=== PATIENT | male | born 1955 | race Caucasian/White ===

== ENCOUNTER 2019-02-02 15:36 | Emergency (ER) | payer BC ==
[2019-02-02] MEDS ORDERED: Metoprolol Tartrate 2.5 MG in Sodium Chloride 0.9% 50 ML IV ONE (16:10)
[2019-02-02] MEDS ORDERED: Metoprolol Tartrate 5 MG/5 ML SDV IVPUSH ONE (16:13)
--- NOTE | 2019-02-02 16:14 | EDM.PDOC ---
ED HPI GENERAL MEDICAL PROBLEM - General Chief Complaint: Cardiovascular Problem Stated Complaint: CARDIAC ISSUES FOLLOWING SURGERY TODAY Time Seen by Provider: 02/02/19 16:00 Source of Information: Reports: Patient History Limitations: Reports: No Limitations - History of Present Illness INITIAL COMMENTS - FREE TEXT/NARRATIVE: 63-year-old male presents to the ED from the recovery room. Patient underwent a meniscectomy on his left knee today by Dr. 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 He states he is not aware of them they don't seem to make him dizzy or short of breath. Surgery did not have any arrhythmias. Apparently his heart rate dipped as low as 30/m at one point during the surgery. He's had his morning meds placed on hold but there is no cardiac meds and this other than simvastatin. Onset: Today Onset Date: 02/02/19 Onset Time: 15:00 Duration: Hour(s): Location: Reports: Other (Irregular heartbeat with trigeminy bigeminy PVCs intraoperatively and postoperatively in the recovery room.) Quality: Reports: Other (He otherwise feels asymptomatic with no dizziness no chest pain. He's not aware of the palpitations.) Severity: Mild Improves with: Reports: None Worsens with: Reports: None Context: Reports: Other (Patient had a left-sided medial meniscectomy today.). 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: EKG, Other (see below) (None.) - Related Data Allergies Allergy/AdvReac Type Severity Reaction Status Date / Time No Known Allergies Allergy Verified 02/02/19 15:45 Home Meds: Home Meds Loratadine [Claritin] 1 tab PO DAILY 06/27/14 [History] Multivitamin [Daily Vitamin] 1 tab PO DAILY 06/27/14 [History] Simvastatin 1 tab PO BEDTIME 06/27/14 [History] Acetaminophen/HYDROcodone [[place] 325-5 MG] 1 - 2 tab PO Q6H PRN #20 tablet 02/02 [Rx] Aspirin 325 mg PO BID #84 tab 02/02/19 [Rx] Past Medical History HEENT History: Reports: Allergic Rhinitis Cardiovascular History: Reports: None Respiratory History: Reports: None Gastrointestinal History: Reports: GERD Genitourinary History: Reports: None RN ORTHOPEDIC History: Reports: None Musculoskeletal History: Reports: None Neurological History: Reports: None Psychiatric History: Reports: None Endocrine/Metabolic History: Reports: None Hematologic History: Reports: None Immunologic History: Reports: None Oncologic (Cancer) History: Reports: None Dermatologic History: Reports: None - Past Surgical History HEENT Surgical History: Reports: None Cardiovascular Surgical History: Reports: None Respiratory Surgical History: Reports: None GI Surgical History: Reports: Colonoscopy Male Surgical History: Reports: None Endocrine Surgical History: Reports: None Neurological Surgical History: Reports: None Musculoskeletal Surgical History: Reports: Knee Replacement, Shoulder Surgery Other Musculoskeletal Surgeries/Procedures:: right knee replacement; left shoulder; left meniscus Oncologic Surgical History: Reports: None Dermatological Surgical History: Reports: None Social & Family History - Family History Family Medical History: Noncontributory - Tobacco Use Smoking Status *Q: Never Smoker - Caffeine Use Caffeine Use: Reports: Coffee - Recreational Drug Use Recreational Drug Use: No - Living Situation & Occupation Living situation: Reports: Occupation: Employed ED ROS GENERAL - Review of Systems Review Of Systems: See Below Constitutional: Reports: Weakness, Fatigue (From the anesthetic.). Denies: Fever, Chills, Malaise, Decreased Appetite HEENT: Reports: No Symptoms Respiratory: Reports: No Symptoms Cardiovascular: Reports: Other (Arrhythmia on the monitor with frequent PVCs. It 's occurred intraoperatively and continued in the recovery room postoperatively and therefore he was sent to the ED for further evaluation). Denies: No Symptoms, Chest Pain, Blood Pressure Problem, Claudication, Dyspnea on Exertion , Edema, Lightheadedness, Orthopnea, Palpitations Endocrine: Reports: No Symptoms GI/Abdominal: Reports: No Symptoms : Reports: Frequency, Other (Nocturia usually 1 or 2.) Musculoskeletal: Reports: Other Skin: Reports: No Symptoms (Left knee pain. Previous total right knee replacement) Neurological: Reports: No Symptoms Psychiatric: Reports: No Symptoms Hematologic/Lymphatic: Reports: No Symptoms Immunologic: Reports: No Symptoms ED EXAM, GENERAL - Physical Exam Exam: See Below Exam Limited By: No Limitations General Appearance: Alert, WD/WN, No Apparent Distress, Other (Vital signs are stable. BP is 137/83 pulse of 60 and sinus with frequent PVCs on the monitor. Arteries 15 pulse ox 99% on room air.) Eye Exam: Bilateral Eye: Normal Inspection Throat/Mouth: Normal Inspection, Normal Lips, Normal Oropharynx, Normal Voice Head: Atraumatic, Normocephalic Neck: Normal Inspection, Supple, Non-Tender, Full Range of Motion, Other. No: Carotid Bruit, Lymphadenopathy (L), Lymphadenopathy (R) Respiratory/Chest: No Respiratory Distress, Lungs Clear, Normal Breath Sounds, No Accessory Muscle Use Cardiovascular: Normal Peripheral Pulses, Regular Rate, Rhythm, No Edema, No Gallop, No Murmur, No Rub, Other (Frequent PVCs with bigeminy trigeminy pattern on the monitor.) Peripheral Pulses: 3+: Posterior Tibial (L), Posterior Tibial (R), Dorsalis Pedis (L), Dorsalis Pedis (R) GI/Abdominal: Normal Bowel Sounds, Soft, Non-Tender, No Organomegaly, No Abnormal Bruit, No Mass, Pelvis Stable Back Exam: Normal Inspection, Full Range of Motion. No: CVA Tenderness (L), CVA Tenderness (R) Extremities: Other (Well-healed midline scar over the right knee. Said previous total knee replacement. The left knee is bandaged with a compression bandage from thigh to foot with Dmitri wrap to the metatarsal heads. Pulses are easily palpable) Neurological: Alert ( in the foot.), Oriented, CN II-XII Intact, Normal Cognition Psychiatric: Normal Affect, Normal Mood Skin Exam: Warm, Dry, Intact, Normal Color, No Rash EKG INTERPRETATION EKG Date: 02/02/19 Time: 16:00 Rhythm: NSR Rate (Beats/Min): 58 (Occasional unifocal PVCs. They were coming in a bigeminy trigeminal fashion on the monitor.) [place]: LAD-Left [place] Deviation (Mild left axis deviation -4.) P-Wave: Present (Borderline first-degree AV block.) QRS: Other (Early R-wave transition V3 V4. Consider septal hypertrophy pattern.) ST-T: Normal (Irregular baseline lead 3) QT: Normal EKG Interpretation Comments: Borderline ECG. Course - Vital Signs Last Recorded V/S: Last Vital Signs Temp 36.2 C 02/02/19 15:47 Pulse 61 02/02/19 16:17 Resp 15 02/02/19 15:47 BP 140/85 02/02/19 16:17 Pulse Ox 99 02/02/19 15:47 - Orders/Labs/Meds Orders: Active Orders 24 hr Category Date Time Status EKG Documentation Completion [RC] ASDIRECTED Care 02/02/19 15:47 Active EKG Documentation Completion [RC] STAT Care 02/02/19 16:09 Inactive Sodium Chloride 0.9% [Normal Saline] 1,000 ml Med 02/02/19 16:30 Active IV ASDIRECTED EKG 12 Lead [EK] Stat Ther 02/02/19 15:46 Ordered Medication Orders Sodium Chloride (Normal Saline) 1,000 mls @ 150 mls/hr IV ASDIRECTED VARGAS Last Admin: 02/02/19 16:28 Dose: 150 mls/hr Meds: Medications Generic Name Dose Route Start Last Admin Trade Name Freq PRN Reason Stop Dose Admin Sodium Chloride 1,000 mls @ 150 mls/hr 02/02/19 16:30 02/02/19 16:28 Normal Saline IV 150 mls/hr ASDIRECTED VARGAS Administration Discontinued Medications Generic Name Dose Route Start Last Admin Trade Name Freq PRN Reason Stop Dose Admin Metoprolol Tartrate 2.5 mg/ 52.5 mls @ 100 mls/hr 02/02/19 16:10 02/02/19 16: 13 Sodium Chloride IV 02/02/19 16:42 Not Given ONETIME ONE Metoprolol Tartrate 2.5 mg 02/02/19 16:13 02/02/19 16:17 Lopressor IVPUSH 02/02/19 16:14 2.5 mg ONETIME ONE Administration - Radiology Interpretation Free Text/Narrative:: Plan 250 mils normal saline bolus. Will give him 2.5 mg of Lopressor IV. Routine labs to be performed. His will include a serum magnesium level and cardiac markers. - Re-Assessments/Exams Free Text/Narrative Re-Assessment/Exam: 02/02/19 17:32 patient remains completely asymptomatic. He still has occasional unifocal PVCs. Unfortunately labs were never collected for an unknown reason and therefore will be canceled. Patient is anxious to get out of the hospital. We discharged to home with follow-up as planned with Dr. Butt. He will return to the ED if any further problems occur. Departure - Departure Time of Disposition: 17:33 Disposition: Home, Self-Care 01 Reason for Transfer *Q: Other Condition: Good Clinical Impression: Arrhythmia Qualifiers: Arrhythmia type: other cardiac arrhythmia Qualified Code(s): I49.8 - Other specified cardiac arrhythmias Referrals: Clarence Coello MD [Primary Care Provider] - Forms: ED Department Discharge Additional Instructions: Evaluation the emergency room at the request of the recovery room after you came out of surgery he developed fairly frequent premature ventricular contractions sometimes every other beat. Sent to the ED for further evaluation in this regard. ECG shows no signs of ischemia or heart attack. They show the occasional unifocal PVC. Given this short dose of Lopressor 2.5 mg to suppress them and he did work for a while. However you're still getting the occasional unifocal PVC which is of no consequence. No changes to medications are to be made at this time. Follow-up any for any further problems occur - My Orders Last 24 Hours: My Active Orders 02/02/19 15:46 EKG 12 Lead [EK] Stat 02/02/19 15:47 EKG Documentation Completion [RC] ASDIRECTED 02/02/19 16:09 EKG Documentation Completion [RC] STAT 02/02/19 16:30 Sodium Chloride 0.9% [Normal Saline] 1,000 ml IV ASDIRECTED - Assessment/Plan Last 24 Hours: My Active Orders 02/02/19 15:46 EKG 12 Lead [EK] Stat 02/02/19 15:47 EKG Documentation Completion [RC] ASDIRECTED 02/02/19 16:09 EKG Documentation Completion [RC] STAT 02/02/19 16:30 Sodium Chloride 0.9% [Normal Saline] 1,000 ml IV ASDIRECTED
[2019-02-02 16:18] VITALS: BP 140/85
[2019-02-02] MEDS ORDERED: Sodium Chloride 0.9% 1,000 ML IV SCH (16:30)
== END 2019-02-02 17:55 | disposition home or self-care (01) ==
LOC: JD.ED 15:36
DX: I49.8 Other specified cardiac arrhythmias (principal); Z79.82 Long term (current) use of aspirin; Z79.899 Other long term (current) drug therapy
CPT/HCPCS: 93005; 96361; 96374; 99285; J3490; J7040

== ENCOUNTER → 2019-02-02 | Day surgery (SDC) | payer BC ==
[~2019-02-02] MED LIST: Bupivacaine 0.25% 10 ML SDV ONE; Dexamethasone 4 MG/ML 5 ML MDV ONE; EPINEPHrine 1 MG/ML 30 ML MDV SCH; Ketorolac 30 MG/ML SDV ONE; Lactated Ringers 1,000 ML IV SCH; Lactated Ringers 1,000 ML ONE; Lidocaine 1% 4 ML ONE; Lidocaine 1%/Sod Bicarbonate in NS 8.4% 1 ML Syringe IDERM PRN; Midazolam 1 MG/ML 2 ML SDV ONE; Ondansetron 4 MG/2 ML SDV ONE; Propofol 200 MG/20 ML SDV ONE; Sodium Chloride 0.9% 10 ML Syringe FLUSH PRN; ceFAZolin 1 GM Vial ONE; ePHEDrine/Normal Saline 25 MG/5 ML Syringe ONE; fentaNYL 100 MCG/2 ML SDV IVPUSH PRN; fentaNYL 250 MCG/5 ML SDV ONE
--- NOTE | 2019-02-02 10:18 | PCM.PREANE ---
Preanesthetic Assessment - Procedure Proposed Procedure: Left KVA with partial medial meniscectomy - Anesthesia/Transfusion/Family Hx Anesthesia History: Prior Anesthesia Without Reaction Family History of Anesthesia Reaction: No Transfusion History: No Prior Transfusion(s) - Review of Systems General: No Symptoms Pulmonary: No Symptoms Cardiovascular: No Symptoms Gastrointestinal: No Symptoms Neurological: No Symptoms Other: Reports: None - Physical Assessment NPO Status Date: 02/01/19 NPO Status Time: 21:00 Vital Signs: Last Vital Signs Temp 36.6 C 02/02/19 09:25 Pulse 54 L 02/02/19 09:25 Resp 16 02/02/19 09:25 BP 134/78 02/02/19 09:25 Pulse Ox 96 02/02/19 09:25 Height: 1.75 m Weight: 78.018 kg ASA Class: 2 Mental Status: Alert & Oriented x3 Airway Class: Mallampati = 1 Dentition: Reports: Normal Dentition, Clancy(s) Thyro-Mental Finger Breadths: 3 Mouth Opening Finger Breadths: 3 ROM/Head Extension: Full Lungs: Clear to Auscultation, Normal Respiratory Effort Cardiovascular: Regular Rate, Regular Rhythm - Lab Values: Laboratory Last Values MRSA (PCR) Negative 01/27/19 10:48 - Imaging/EKG Impressions: EKG sinus rhythm rate 51 - Allergies Allergies/Adverse Reactions: Allergies Allergy/AdvReac Type Severity Reaction Status Date / Time No Known Allergies Allergy Verified 02/01/19 11:59 - Blood Blood Available: No Product(s) Available: None - Anesthesia Plan Pre-Op Medication Ordered: None - Acknowledgements Anesthesia Type Planned: General Anesthesia Pt an Appropriate Candidate for the Planned Anesthesia: Yes Alternatives and Risks of Anesthesia Discussed w Pt/Guardian: Yes Pt/Guardian Understands and Agrees with Anesthesia Plan: Yes PreAnesthesia Questionnaire HEENT History: Reports: Allergic Rhinitis Cardiovascular History: Reports: None Respiratory History: Reports: None Gastrointestinal History: Reports: GERD (history) Genitourinary History: Reports: None LOAD CHECKER History: Reports: None Musculoskeletal History: Reports: None Neurological History: Reports: None Psychiatric History: Reports: None Endocrine/Metabolic History: Reports: None Hematologic History: Reports: None Immunologic History: Reports: None Oncologic (Cancer) History: Reports: None Dermatologic History: Reports: None - Past Surgical History HEENT Surgical History: Reports: None Cardiovascular Surgical History: Reports: None Respiratory Surgical History: Reports: None GI Surgical History: Reports: Colonoscopy Female Surgical History: Reports: None Male Surgical History: Reports: None Endocrine Surgical History: Reports: None Neurological Surgical History: Reports: None Musculoskeletal Surgical History: Reports: Knee Replacement, Shoulder Surgery Oncologic Surgical History: Reports: None Dermatological Surgical History: Reports: None - SUBSTANCE USE Smoking Status *Q: Never Smoker Tobacco Use Within Last Twelve Months: No Second Hand Smoke Exposure: No Days Per Week of Alcohol Use: 1 Number of Drinks Per Day: 1 Total Drinks Per Week: 1 Recreational Drug Use History: No - HOME MEDS Home Medications: Home Meds Loratadine [Claritin] 1 tab PO DAILY 06/27/14 [History] Multivitamin [Daily Vitamin] 1 tab PO DAILY 06/27/14 [History] Simvastatin 1 tab PO BEDTIME 06/27/14 [History] Acetaminophen/HYDROcodone [[place] 325-5 MG] 1 - 2 tab PO Q6H PRN #20 tablet 02/02 [Rx] Aspirin 325 mg PO BID #84 tab 02/02/19 [Rx] - CURRENT (IN HOUSE) MEDS Current Meds: Current Medications Epinephrine HCl (Adrenalin) 3 mg .XX ONETIME VARGAS Stop: 02/02/19 12:00 Lactated Ringer's (Ringers, Lactated) 1,000 mls @ 125 mls/hr IV ASDIRECTED VARGAS Stop: 02/02/19 23:00 Lidocaine/Sodium Bicarbonate (Buffered Lidocaine 1% In Ns 8.4%) 0.25 ml IDERM ONETIME PRN PRN Reason: Prior to IV Start Stop: 02/02/19 18:00 Sodium Chloride (Saline Flush) 10 ml FLUSH ASDIRECTED PRN PRN Reason: Keep Vein Open Stop: 02/02/19 18:00 Discontinued Medications Cefazolin Sodium (Ancef) Confirm Administered Dose 2 gm .ROUTE .STK-MED ONE Stop: 02/02/19 07:06 Dexamethasone (Dexamethasone) Confirm Administered Dose 20 mg .ROUTE .STK-MED ONE Stop: 02/02/19 07:07 Fentanyl (Sublimaze) Confirm Administered Dose 250 mcg .ROUTE .STK-MED ONE Stop: 02/02/19 07:06 Lidocaine HCl (Xylocaine-Mpf 1%) Confirm Administered Dose 4 mls @ as directed .ROUTE .STK-MED ONE Stop: 02/02/19 07:06 Lactated Ringer's (Ringers, Lactated) Confirm Administered Dose 1,000 mls @ as directed .ROUTE .[facility]-MED ONE Stop: 02/02/19 07:06 Ketorolac Tromethamine (Toradol) Confirm Administered Dose 30 mg .ROUTE .[facility]- MED ONE Stop: 02/02/19 07:07 Midazolam HCl (Versed 1 Mg/Ml) Confirm Administered Dose 2 mg .ROUTE .ST-MED ONE Stop: 02/02/19 07:06 Ondansetron HCl (Zofran) Confirm Administered Dose 4 mg .ROUTE .[facility]-MED ONE Stop: 02/02/19 07:06 Propofol (Diprivan 20 Ml) Confirm Administered Dose 400 mg .ROUTE .[facility]-MED ONE Stop: 02/02/19 07:06
--- NOTE | 2019-02-02 12:09 | PCM.POSTAN ---
POST ANESTHESIA ASSESSMENT - MENTAL STATUS Mental Status: Alert, Oriented - VITAL SIGNS Vital Signs: Last Vital Signs Temp 36.6 C 02/02/19 09:25 Pulse 54 L 02/02/19 09:25 Resp 16 02/02/19 09:25 BP 134/78 02/02/19 09:25 Pulse Ox 96 02/02/19 09:25 - RESPIRATORY Respiratory Status: Respiratory Rate WNL, Airway Patent, O2 Saturation Stable, Supplemental Oxygen - CARDIOVASCULAR CV Status: Pulse Rate WNL, Blood Pressure Stable - GASTROINTESTINAL GI Status: No Symptoms - PAIN Pain Score: 0 - POST OP HYDRATION Hydration Status: Adequate & Stable
--- NOTE | 2019-02-02 12:47 | PCM48HPAN ---
Post Anesthesia Note - EVALUATION WITHIN 48HRS OF ANESTHETIC Vital Signs in Normal Range: Yes Patient Participated in Evaluation: Yes Respiratory Function Stable: Yes Airway Patent: Yes Cardiovascular Function Stable: Yes Hydration Status Stable: Yes Pain Control Satisfactory: Yes Nausea and Vomiting Control Satisfactory: Yes Mental Status Recovered: Yes Vital Signs: Last Vital Signs Temp 36.1 C 02/02/19 12:04 Pulse 54 L 02/02/19 09:25 Resp 29 H 02/02/19 12:30 BP 126/79 02/02/19 12:30 Pulse Ox 97 02/02/19 12:30
[2019-02-02 15:14] VITALS: PULSE 64
[2019-02-02 16:19] VITALS: BP 135/86
--- NOTE | 2019-02-07 14:55 | PCM.OPNOTE ---
- General Post-Op/Procedure Note Date of Surgery/Procedure: 02/02/19 Operative Procedure(s): left knee video arthroscopy with partial medial meniscectomy Pre Op Diagnosis: left knee medial meniscus tear with mild osteoarhtrosis Post-Op Diagnosis: Same Anesthesia Technique: General LMA, Local Primary Surgeon: Emil Butt Anesthesia Provider: Khadar Fernandez Autographer: Mana Christian in mLs: 5 Complications: None Condition: Good
--- NOTE | 2019-02-07 15:37 | OR ---
DATE OF OPERATION: 02/02/2019 SURGEON: Emil Butt MD OPERATION PERFORMED: Left knee video arthroscopy with partial medial meniscectomy. PREOPERATIVE DIAGNOSIS: Left knee medial meniscus tear with mild osteoarthrosis. POSTOPERATIVE DIAGNOSIS: Left knee medial meniscus tear with mild osteoarthrosis. ANESTHESIA: General LMA with local. ANESTHESIA PROVIDER: Janes Iyv. SWITCHBOARD OPERATOR RECEPTIONIST: Mana Christian PA-C ESTIMATED BLOOD LOSS: 5 mL. COMPLICATIONS: None. CONDITION: Stable. DESCRIPTION OF PROCEDURE: The patient was identified in the preop holding area. Proper site was marked and identified by the surgeon. The patient was taken back to the operating theater where after adequate anesthesia, the patient's right lower extremity was placed in a well leg thompson. Left lower extremity had a nonsterile tourniquet applied, and it was then placed in a C-clamp thompson. The foot of the bed was then lowered. Left lower extremity was then sterilely prepped and draped in the usual sterile fashion. OR time-out was performed. The patient received 2 g of IV Ancef. At this time, the left lower extremity was exsanguinated. Tourniquet was then insufflated to 250 mmHg. Standard anterior and lateral portal incision was made. Scope trocar was introduced. 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 He was noted to have a large plica on the medial side. Attention was turned to the medial compartment. With the use of a spinal needle, anterior medial portal was created. The patient was noted to have a degenerative tear of the posterior third horn of the medial meniscus. At this time, just a small 15% of the posterior horn of the medial meniscus was resected back to a stable rim. 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 ACL was noted to be somewhat stretched on the notch. Lateral compartment showed no signs or changes. At this time, I did do a fat pad resection as well as resection of the plica as it did have significant hypertrophy and large plica. Excess saline was drained from the knee. A 3-0 nylon suture was used for closure of the skin. The patient was placed in a sterile soft dressing and sent to PACU in stable condition. MMODAL /[id number]
== END | disposition home or self-care (01) ==
LOC: JD.SDS 09:15
PROVIDERS: ATTEND Orthopaedic Surgery
DX: M23.322 Other meniscus derangements, posterior horn of medial meniscus, left knee (principal); M17.12 Unilateral primary osteoarthritis, left knee; M22.42 Chondromalacia patellae, left knee; E78.00 Pure hypercholesterolemia, unspecified; K21.9 Gastro-esophageal reflux disease without esophagitis; Z79.82 Long term (current) use of aspirin; Z79.899 Other long term (current) drug therapy
CPT/HCPCS: 29881; 87641; 93005; J0171; J0690; J1100; J1885; J2001; J2250; J2405; J2704; J3010; J3490; J7050; J7120; 01400

== ENCOUNTER 2022-01-26 19:46 | Emergency (ER) | payer OTHER, MEDICARE ==
[2022-01-26 19:59] VITALS: BP 142/92; PULSE 64
[2022-01-26] MEDS ORDERED: Ibuprofen 600 MG Tab PO ONE (20:02)
[2022-01-26] MEDS ORDERED: Lidocaine 4% 1 each Patch TOP PRN (20:03)
[2022-01-27] MEDS ORDERED: Remove Patch LIDOCAINE TRDERM SCH (09:00)
== END 2022-01-26 21:31 | disposition home or self-care (01) ==
LOC: JD.ED 19:46
DX: S19.9XXA Unspecified injury of neck, initial encounter (principal); S50.312A Abrasion of left elbow, initial encounter; S00.81XA Abrasion of other part of head, initial encounter; Z79.82 Long term (current) use of aspirin; Z79.899 Other long term (current) drug therapy; V19.9XXA Pedal cyclist (driver) (passenger) injured in unspecified traffic accident, initial encounter
CPT/HCPCS: 73000; 99283; A9270; 99282

== ENCOUNTER 2024-05-02 09:26 | Day surgery (SDC) | payer MEDICARE ==
[~2024-05-02 09:26] MED LIST changes: -Bupivacaine 0.25% 10 ML SDV ONE; -Dexamethasone 4 MG/ML 5 ML MDV ONE; -EPINEPHrine 1 MG/ML 30 ML MDV SCH; +HYDROmorphone 0.5 MG/0.5 ML Syringe IVPUSH PRN; -Ketorolac 30 MG/ML SDV ONE; -Lactated Ringers 1,000 ML IV SCH; -Lactated Ringers 1,000 ML ONE; -Lidocaine 1% 4 ML ONE; -Lidocaine 1%/Sod Bicarbonate in NS 8.4% 1 ML Syringe IDERM PRN; -Midazolam 1 MG/ML 2 ML SDV ONE; +Ondansetron 4 MG/2 ML SDV IVPUSH PRN; -Ondansetron 4 MG/2 ML SDV ONE; -Propofol 200 MG/20 ML SDV ONE; +Sodium Chloride 0.9% 10 ML Syringe FLUSH SCH; -ceFAZolin 1 GM Vial ONE; -ePHEDrine/Normal Saline 25 MG/5 ML Syringe ONE; -fentaNYL 250 MCG/5 ML SDV ONE
[2024-05-02] MEDS: Lactated Ringers 1,000 ML IV SCH (09:55)
[2024-05-02] MEDS ORDERED: Propofol 200 MG/20 ML SDV ONE (11:08)
[2024-05-02] MEDS ORDERED: Lidocaine 2% 5 ML SDV ONE (11:08)
[2024-05-02] MEDS ORDERED: fentaNYL 100 MCG/2 ML SDV ONE (11:24)
[2024-05-02] MEDS ORDERED: Midazolam 1 MG/ML 2 ML SDV ONE (11:25)
[2024-05-02] MEDS ORDERED: Glycopyrrolate 0.2 MG/ML 2 ML SDV ONE (11:26)
[2024-05-02 13:24] VITALS: BP 110/77; PULSE 65
== END 2024-05-02 13:00 | disposition home or self-care (01) ==
LOC: JD.SDS 09:26
PROVIDERS: ATTEND Surgery
DX: Z12.11 Encounter for screening for malignant neoplasm of colon (principal); R19.5 Other fecal abnormalities; D12.0 Benign neoplasm of cecum; D12.3 Benign neoplasm of transverse colon; D12.5 Benign neoplasm of sigmoid colon; K57.30 Diverticulosis of large intestine without perforation or abscess without bleeding; F41.9 Anxiety disorder, unspecified; K21.9 Gastro-esophageal reflux disease without esophagitis; E78.00 Pure hypercholesterolemia, unspecified; Z79.899 Other long term (current) drug therapy
CPT/HCPCS: 45380; 45385; J2250; J2704; J3010; J3490; J7120; 00811

== ENCOUNTER 2024-05-10 11:30 | Day surgery (SDC) | payer MEDICARE ==
[~2024-05-10 11:30] MED LIST changes: -HYDROmorphone 0.5 MG/0.5 ML Syringe IVPUSH PRN; -Ondansetron 4 MG/2 ML SDV IVPUSH PRN; -fentaNYL 100 MCG/2 ML SDV IVPUSH PRN
[2024-05-10] MEDS: Lactated Ringers 1,000 ML IV SCH (12:00)
[2024-05-10] MEDS ORDERED: Propofol 200 MG/20 ML SDV ONE (12:26)
[2024-05-10] MEDS ORDERED: Rocuronium 50 MG/5 ML Vial ONE (12:27)
[2024-05-10] MEDS ORDERED: fentaNYL 100 MCG/2 ML SDV ONE (12:27)
[2024-05-10] MEDS ORDERED: Lidocaine 1% 5 ML VIAL ONE (12:27)
[2024-05-10] MEDS ORDERED: Midazolam 1 MG/ML 2 ML SDV ONE (12:27)
[2024-05-10] MEDS ORDERED: dexmedeTOMIDine HCl 200 MCG/2 ML SDV ONE (12:30)
[2024-05-10] MEDS ORDERED: Ropivacaine 0.5% 5 MG/ML 30 ML SDV ONE (12:30)
[2024-05-10] MEDS ORDERED: ePHEDrine 50 MG/ML SDV ONE (13:21)
[2024-05-10] MEDS ORDERED: ceFAZolin 2 GM Vial ONE (13:26)
[2024-05-10] MEDS ORDERED: Dexamethasone 4 MG/ML 5 ML MDV ONE (13:38)
[2024-05-10] MEDS ORDERED: Ondansetron 4 MG/2 ML SDV ONE (13:38)
[2024-05-10] MEDS ORDERED: Ketorolac 30 MG/ML SDV ONE (13:56)
[2024-05-10] MEDS ORDERED: Sugammadex Sodium 200 MG/2 ML VIAL IV ONE (13:56)
[2024-05-10] MEDS: EPINEPHrine 1 MG/ML SDV ONE (13:58)
[2024-05-10] MEDS ORDERED: HYDROmorphone 0.5 MG/0.5 ML Syringe IVPUSH PRN (14:00)
[2024-05-10] MEDS ORDERED: Ondansetron 4 MG/2 ML SDV IVPUSH PRN (14:00)
[2024-05-10] MEDS ORDERED: fentaNYL 100 MCG/2 ML SDV IVPUSH PRN (14:00)
[2024-05-10 16:27] VITALS: BP 138/97; PULSE 63
== END 2024-05-10 16:20 | disposition home or self-care (01) ==
LOC: JD.SDS 11:30
PROVIDERS: ATTEND Orthopaedic Surgery
DX: M75.121 Complete rotator cuff tear or rupture of right shoulder, not specified as traumatic (principal); M75.21 Bicipital tendinitis, right shoulder; M94.211 Chondromalacia, right shoulder; E78.5 Hyperlipidemia, unspecified; Z91.09 Other allergy status, other than to drugs and biological substances; Z79.899 Other long term (current) drug therapy
CPT/HCPCS: 29823; 64415; J0171; J0690; J1100; J1885; J2250; J2405; J2704; J2795; J3010; J3490; J7120; 01630